=== PATIENT | female | born 1995 | race Two or more races ===

== ENCOUNTER 2021-04-16 10:41 | Observation (INO) | payer MEDICAID, OTHER ==
[~2021-04-16] VITALS: Ht 162.6 cm; Wt 102.1 kg
[2021-04-16 12:22] LABS: BASOPHILS % 0.3 % (0.0-2.0); EOSINOPHILS % 1.4 % (0.0-5.0); HEMATOCRIT. 33.9 % (36.0-48.0); HEMOGLOBIN. 11.8 g/dL (12.0-16.0); LYMPHOCYTES % 15.5 % (20.0-50.0); MEAN CORPUSCULAR HEMOGLOBIN 28.7 pg (28.0-32.0); MEAN CORPUSCULAR VOLUME 82.6 fL (81.0-99.0); MEAN PLATELET VOLUME 7.9 fl (7.4-10.4); MONOCYTES % 6.5 % (2.0-8.0); NEUTROPHILS % 76.3 % (40.0-76.0); PLATELET 280 x1000/uL (130-400); RED BLOOD CELL COUNT 4.11 mill/uL (4.2-5.4); RED CELL DISTRIBUTION WIDTH 14.6 % (11.6-14.6)
[2021-04-16 12:26] LABS: CHLORIDE 111 mEq/L (98-107)
[2021-04-16 12:35] LABS: CLARITY URINE CLOUDY (CLEAR); COLOR URINE YELLOW (YELLOW); KETONES URINE NEGATIVE (NEGATIVE); LEUKOCYTE ESTERASE URINE NEGATIVE (NEGATIVE); NITRITE URINE NEGATIVE (NEGATIVE); OCCULT BLOOD URINE 1+ (NEGATIVE); PH URINE 6.5 (4.5-8.0); PROTEIN URINE TRACE (NEGATIVE); SPECIFIC GRAVITY URINE 1.019 (1.005-1.030); UROBILINOGEN URINE 0.2 E.U./dL (0.2-1.0)
[2021-04-16 12:49] LABS: D-DIMER 1.34 mg/L FEU (<0.50); INR 0.9; PARTIAL THROMBOPLASTIN TIME 24.2 sec (23.4-31.0); PROTHROMBIN TIME 9.9 sec (9.6-11.0)
== END 2021-04-16 14:15 | disposition home or self-care (01) ==
LOC: 8 EST LDRP 10:41
PROVIDERS: ADMIT Obstetrics & Gynecology; ATTEND Obstetrics & Gynecology
DX: O13.3 Gestational [pregnancy-induced] hypertension without significant proteinuria, third trimester (principal); Z79.899 Other long term (current) drug therapy; Z3A.34 34 weeks gestation of pregnancy
CPT/HCPCS: 36415; 76805; 76818; 80053; 81003; 84550; 85025; 85379; 85384; 85610; 85730; 99281; G0378; 59025

== ENCOUNTER 2021-04-23 11:25 | Observation (INO) | payer OTHER ==
[~2021-04-23] VITALS: Ht 167.6 cm; Wt 102.5 kg
[2021-04-23 13:02] LABS: BASOPHILS % 0.5 % (0.0-2.0); EOSINOPHILS % 4.4 % (0.0-5.0); HEMATOCRIT. 35.3 % (36.0-48.0); HEMOGLOBIN. 11.7 g/dL (12.0-16.0); LYMPHOCYTES % 16.2 % (20.0-50.0); MEAN CORPUSCULAR HEMOGLOBIN 27.5 pg (28.0-32.0); MEAN CORPUSCULAR VOLUME 83.2 fL (81.0-99.0); MONOCYTES % 7.8 % (2.0-8.0); NEUTROPHILS % 71.1 % (40.0-76.0); PLATELET 291 x1000/uL (130-400); RED BLOOD CELL COUNT 4.24 mill/uL (4.2-5.4); RED CELL DISTRIBUTION WIDTH 14.7 % (11.6-14.6)
[2021-04-23 13:05] LABS: CLARITY URINE CLOUDY (CLEAR); COLOR URINE YELLOW (YELLOW); KETONES URINE NEGATIVE (NEGATIVE); LEUKOCYTE ESTERASE URINE 1+ (NEGATIVE); NITRITE URINE NEGATIVE (NEGATIVE); OCCULT BLOOD URINE NEGATIVE (NEGATIVE); PH URINE 6.5 (4.5-8.0); PROTEIN URINE 1+ (NEGATIVE); SPECIFIC GRAVITY URINE 1.015 (1.005-1.030); UROBILINOGEN URINE 0.2 E.U./dL (0.2-1.0)
[2021-04-23 13:09] LABS: CHLORIDE 108 mEq/L (98-107)
[2021-04-23 13:17] LABS: INR 0.9; PARTIAL THROMBOPLASTIN TIME 29.8 sec (23.4-31.0); PROTHROMBIN TIME 9.8 sec (9.6-11.0)
== END 2021-04-23 14:45 | disposition home or self-care (01) ==
LOC: 8EST NSY 11:25 → OB TRIAGE 11:59
PROVIDERS: ADMIT Obstetrics & Gynecology; ATTEND Obstetrics & Gynecology
DX: O26.893 Other specified pregnancy related conditions, third trimester (principal); R03.0 Elevated blood-pressure reading, without diagnosis of hypertension; Z79.01 Long term (current) use of anticoagulants; Z3A.35 35 weeks gestation of pregnancy
CPT/HCPCS: 36415; 59025; 80053; 81003; 84550; 85025; 85384; 85610; 85730; G0378; 99281

== ENCOUNTER 2021-05-14 11:04 | Inpatient (IN) | payer OTHER ==
[~2021-05-14] VITALS: Ht 160 cm; Wt 104.8 kg
[2021-05-14] MEDS ORDERED: CARBOPROST TROMETHAMINE 250 MCG/ML AMPUL IM PRN (12:00)
[2021-05-14] MEDS ORDERED: BUTORPHANOL TARTRATE 2 MG/ML VIAL IV PRN (12:00)
[2021-05-14] MEDS ORDERED: LIDOCAINE HCL 1% 30ML VIAL (10MG/ML) INFIL SCH (12:00)
[2021-05-14] MEDS ORDERED: DEXT 5%/LR + PITOCIN 20UNITS/L 1,000 ML IV SCH (12:00)
[2021-05-14] MEDS ORDERED: METHYLERGONOVINE MALEATE 0.2 MG/ML IM PRN (12:00)
[2021-05-14] MEDS: LACTATED RINGERS 1,000 ML IV SCH ×2 (13:00→21:29)
[2021-05-14 13:04] LABS: CLARITY URINE TURBID (CLEAR); COLOR URINE DARK YELLOW (YELLOW); KETONES URINE TRACE (NEGATIVE); LEUKOCYTE ESTERASE URINE 1+ (NEGATIVE); NITRITE URINE NEGATIVE (NEGATIVE); OCCULT BLOOD URINE 1+ (NEGATIVE); PROTEIN URINE 4+ (NEGATIVE); SPECIFIC GRAVITY URINE 1.032 (1.005-1.030)
[2021-05-14] MEDS: MAGNESIUM 20 G PREMIX (L & D) 500 ML IV SCH (13:07)
[2021-05-14 13:08] LABS: BASOPHILS % 0.3 % (0.0-2.0); EOSINOPHILS % 2.1 % (0.0-5.0); HEMATOCRIT. 35.2 % (36.0-48.0); HEMOGLOBIN. 12.1 g/dL (12.0-16.0); MEAN CORPUSCULAR HEMOGLOBIN 28.9 pg (28.0-32.0); MEAN PLATELET VOLUME 8.4 fl (7.4-10.4); MONOCYTES % 9.9 % (2.0-8.0); NEUTROPHILS % 68.7 % (40.0-76.0); PLATELET 252 x1000/uL (130-400); RED BLOOD CELL COUNT 4.19 mill/uL (4.2-5.4); RED CELL DISTRIBUTION WIDTH 15.6 % (11.6-14.6)
[2021-05-14 13:13] LABS: CHLORIDE 111 mEq/L (98-107)
[2021-05-14 13:21] LABS: *BARBITURATES SCREEN URINE NEGATIVE (NEGATIVE); *COCAINE SCREEN URINE NEGATIVE (NEGATIVE)
[2021-05-14 13:22] LABS: CANNABINOID URINE SCREEN NEGATIVE (NEGATIVE); PHENCYCLIDINE URINE SCREEN NEGATIVE (NEGATIVE)
[2021-05-14 13:23] LABS: INR 0.9; PARTIAL THROMBOPLASTIN TIME 26.9 sec (23.4-31.0); PROTHROMBIN TIME 9.6 sec (9.6-11.0)
[2021-05-14 13:31] LABS: METHADONE URINE SCREEN NEGATIVE (NEGATIVE); OPIATES URINE SCREEN NEGATIVE (NEGATIVE)
[2021-05-14 13:35] LABS: *AMPHETAMINES SCREEN URINE NEGATIVE (NEGATIVE); *BENZODIAZEPINES SCREEN URINE NEGATIVE (NEGATIVE)
[2021-05-14 14:01] LABS: HEPATITIS B SURFACE ANTIGEN NEGATIVE
[2021-05-14] MEDS: MISOPROSTOL 100MCG TABLET VG PRN ×2 (15:50→20:05)
[2021-05-14] MEDS ORDERED: LABETALOL HCL 5MG/ML VIAL 20ML IV PRN ×3 (16:30)
[2021-05-14] MEDS: LABETALOL HCL 100MG TABLET PO SCH (21:22)
[2021-05-14] MEDS ORDERED: HYDRALAZINE 20MG/ML VIAL IV PRN (22:45)
[2021-05-15] MEDS: MISOPROSTOL 100MCG TABLET VG PRN ×2 (00:01→07:48)
[2021-05-15] MEDS ORDERED: HYDRALAZINE 20MG/ML VIAL IV PRN (03:00)
[2021-05-15] MEDS: NIFEDIPINE 10MG CAPSULE PO NR ×2 (04:25→11:27)
[2021-05-15] MEDS: LACTATED RINGERS 1,000 ML IV SCH ×2 (05:17→07:49)
[2021-05-15] MEDS ORDERED: MAGNESIUM 20 G PREMIX (L & D) 500 ML IV SCH (05:30)
[2021-05-15] MEDS ORDERED: ROPIVACAINE HCL/PF 100ML 100 ML ONE (06:12)
[2021-05-15] MEDS ORDERED: ACETAMINOPHEN 325MG TABLET PO SCH (07:00)
[2021-05-15] MEDS ORDERED: LIDOCAINE HCL 2%/EPINEPHRINE 1:100,000 20 ML VIAL INFIL ONE (07:53)
[2021-05-15] MEDS: LABETALOL HCL 100MG TABLET PO SCH ×2 (09:13→22:15)
[2021-05-15] MEDS ORDERED: NIFEDIPINE 10MG CAPSULE PO SCH (11:15)
[2021-05-15] MEDS: CETIRIZINE 10MG TABLET PO SCH (11:15)
[2021-05-15] MEDS ORDERED: EPHEDRINE SULFATE 50MG/ML VIAL ONE (12:03)
[2021-05-15] MEDS ORDERED: CEFAZOLIN SODIUM 1000MG/VIAL ONE (12:03)
[2021-05-15] MEDS ORDERED: OXYTOCIN 10 UNITS/ML 1ML ONE (12:03)
[2021-05-15] MEDS ORDERED: ONDANSETRON HCL 4MG/2ML INJ ONE (12:03)
[2021-05-15] MEDS ORDERED: DEXAMETHASONE 4MG/ML 1ML VIAL ONE (12:05)
[2021-05-15] MEDS ORDERED: SODIUM BICARBONATE 4% (2.4MEQ) 5ML VIAL IV ONE (12:10)
[2021-05-15] MEDS ORDERED: MORPHINE SULFATE/PF 1MG/ML 10ML AMP ONE (12:43)
[2021-05-15] MEDS ORDERED: KETOROLAC 30MG/ML VIAL IV PRN (13:15)
[2021-05-15] MEDS ORDERED: NALOXONE HCL 0.4 MG/ML 1ML VIAL IV PRN (13:15)
[2021-05-15] MEDS ORDERED: KETOROLAC 60MG/2ML VIAL IM ONE (13:21)
[2021-05-15] MEDS ORDERED: IBUPROFEN 400MG TABLET PO PRN (13:45)
[2021-05-15] MEDS ORDERED: HYDROMORPHONE HCL/PF 2MG/ML CPJ IM PRN ×2 (13:45→14:00)
[2021-05-15] MEDS ORDERED: BISACODYL 10MG SUPP PR PRN (13:45)
[2021-05-15] MEDS ORDERED: RHO(D) IMMUNE GLOBULIN 300 MCG/SYR IM PRN (13:45)
[2021-05-15] MEDS ORDERED: DEXT 5%/LR + PITOCIN 20UNITS/L 1,000 ML IV SCH (13:45)
[2021-05-15] MEDS ORDERED: DIPHENHYDRAMINE 25MG CAPSULE PO PRN (13:45)
[2021-05-15] MEDS ORDERED: OXYCODONE HCL/ACETAMINOPHEN 5/325MG TABLET PO PRN (13:45)
[2021-05-15 16:10] VITALS: BP 139/92
[2021-05-15 18:21] VITALS: BP 145/92
[2021-05-15] MEDS: MAGNESIUM 20 G PREMIX (L & D) 500 ML IV SCH (19:00)
[2021-05-15 19:30] VITALS: BP 129/69
[2021-05-16] VITALS: BP 138/75
[2021-05-16 04:00] VITALS: BP 144/80
[2021-05-16 07:35] LABS: BASOPHILS % 0.2 % (0.0-2.0); EOSINOPHILS % 0.9 % (0.0-5.0); HEMATOCRIT. 31.2 % (36.0-48.0); HEMOGLOBIN. 10.6 g/dL (12.0-16.0); LYMPHOCYTES % 18.4 % (20.0-50.0); MEAN CORPUSCULAR HEMOGLOBIN 28.1 pg (28.0-32.0); MEAN CORPUSCULAR VOLUME 83.1 fL (81.0-99.0); MEAN PLATELET VOLUME 8.3 fl (7.4-10.4); MONOCYTES % 7.5 % (2.0-8.0); PLATELET 223 x1000/uL (130-400); RED BLOOD CELL COUNT 3.76 mill/uL (4.2-5.4); RED CELL DISTRIBUTION WIDTH 15.8 % (11.6-14.6)
[2021-05-16 07:52] VITALS: BP 124/70
[2021-05-16] MEDS: PRENATAL VIT/FE FUMARATE/FA TABLET PO SCH (08:59)
[2021-05-16] MEDS: FERROUS SULFATE 325MG TABLET PO SCH ×3 (08:59→17:51)
[2021-05-16] MEDS: CETIRIZINE 10MG TABLET PO SCH (08:59)
[2021-05-16] MEDS: LABETALOL HCL 100MG TABLET PO SCH ×2 (09:00→21:50)
[2021-05-16 12:05] VITALS: BP 126/79
[2021-05-16 16:00] VITALS: BP 127/75
[2021-05-16 20:00] VITALS: BP 176/86
[2021-05-16] MEDS: IBUPROFEN 800MG TABLET PO PRN (21:50)
[2021-05-17] VITALS: BP 149/81
[2021-05-17 04:00] VITALS: BP 154/85
[2021-05-17 07:30] VITALS: BP 164/78
[2021-05-17] MEDS: PRENATAL VIT/FE FUMARATE/FA TABLET PO SCH (08:13)
[2021-05-17] MEDS: FERROUS SULFATE 325MG TABLET PO SCH (08:13)
[2021-05-17] MEDS: IBUPROFEN 800MG TABLET PO PRN ×2 (08:13→21:09)
[2021-05-17 09:00] VITALS: BP 147/75
[2021-05-17] MEDS: LABETALOL HCL 100MG TABLET PO SCH ×2 (09:07→21:09)
[2021-05-17 16:39] VITALS: BP 156/95
[2021-05-17 20:00] VITALS: BP 164/93
[2021-05-18] VITALS: BP 149/83
[2021-05-18 04:00] VITALS: BP 146/77
[2021-05-18] MEDS ORDERED: IBUP-2030 PO (06:07)
[2021-05-18] MEDS ORDERED: LABE100T5 PO (06:07)
[2021-05-18 08:00] VITALS: BP 164/92
[2021-05-18] MEDS: PRENATAL VIT/FE FUMARATE/FA TABLET PO SCH (08:49)
[2021-05-18] MEDS: FERROUS SULFATE 325MG TABLET PO SCH (08:49)
[2021-05-18] MEDS: IBUPROFEN 800MG TABLET PO PRN (08:54)
[2021-05-18] MEDS: LABETALOL HCL 100MG TABLET PO SCH (08:55)
== END 2021-05-18 14:00 | disposition home or self-care (01) | DRG 540 ==
LOC: 8 EST LDRP 11:04 → OBSVTOIN 11:04 → 8EST 05-15 16:22
PROVIDERS: ADMIT Obstetrics & Gynecology; ATTEND Obstetrics & Gynecology
PROC: 10D00Z1 Extraction of Products of Conception, Low, Open Approach (ICD-10-PCS; principal; 2021-05-15)
PROC: 3E0P7GC Introduction of Other Therapeutic Substance into Female Reproductive, Via Natural or Artificial Opening (ICD-10-PCS; 2021-05-15)
DX: O13.4 Gestational [pregnancy-induced] hypertension without significant proteinuria, complicating childbirth (principal); O99.324 Drug use complicating childbirth; O14.94 Unspecified pre-eclampsia, complicating childbirth; F16.10 Hallucinogen abuse, uncomplicated; O99.214 Obesity complicating childbirth; Z20.822 Contact with and (suspected) exposure to COVID-19; O64.0XX0 Obstructed labor due to incomplete rotation of fetal head, not applicable or unspecified; O99.03 Anemia complicating the puerperium; O62.2 Other uterine inertia; Z3A.38 38 weeks gestation of pregnancy; Z37.0 Single live birth; Z83.3 Family history of diabetes mellitus
CPT/HCPCS: 36415; 76805; 76818; 80053; 80305; 80359; 81003; 83735; 84550; 85025; 85384; 86592; 86703; 86762; 86850; 86900; 87340; 87426; 88307; 99281; J0360; J0595; J0690; J1100; J1885; J2274; J2405; J2590; J2795; J3475; J3490; J7120